=== PATIENT | male | born 2000 | race Caucasian/White ===

== ENCOUNTER 2020-04-07 14:00 | Outpatient (RCR) | payer OTHER, SELFPAY ==
--- NOTE | 2020-04-07 14:37 | HO.PHPPROGNO ---
Subjective Subjective Date of Service: 04/07/20 Reason For Visit: med follow up Interim History: Pt presents for follow up. Bright affect. Happy to share that he has decided to stop smoking marijuana for a month to see if that helps with his motivation. He reports he has not smoked for one day. he asked about increasing lorazepam dose as he feels it's too weak . When asked how/when he is taking this medication, he reports he takes it upon waking at 8am and then he goes back to sleep until at least 11am. He reports he likes that it helps him sleep longer. Discussed rationale for medication and that taking in AM to just go to sleep is likely not the best use of this medication. 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 Pt declined to alaborate any further and requested we talk about something different Ended visit by asking what would happen if he stopped Olanzapine, and asking if it was okay that he try ayahu[place]a in the future. Advised against at this time. Medication Compliance: Yes Side effects from medications: No Review of Systems Cardiovascular: Denies dyspnea Respiratory: Denies dyspnea Gastrointestinal: Reports no additional gastrointestinal complaints Psychiatric: Reports anxiety, Denies depression and Reports paranoia Mental Status Exam Mental Status Exam Patient Appearance: Appropriate Level of Consciousness: Awake and Alert Patient Behavior: Talkative Mood Description: Happy and Apprehensive Affect Description: Happy and Anxious Ability to Follow Directions: Good Speech Pattern: Clear Thought Process: Distracted and Rumination Thought Content: positive for [place], positive for Circumstantial and positive for Perseveration Judgement: Fair Assessment & Plan Assessment & Plan (1) Schizophrenia: Status: Acute Code(s): F20.9 - Schizophrenia, unspecified Assessment and Plan: Adding Buspirone TID to address reported anxiety sx plan to transfer to new provider at the end of April refills will be submitted as needed until then Greater than 50% of the session was spent on counseling and/or coordination of care Discharge Plan Discharge Attending provider: Crystal Gupta Medications: New buspirone 7.5 mg tablet 7.5 mg PO TID Qty: 90 RF: 1 No Action lorazepam 0.5 mg tablet 0.5 mg PO BID PRN (Reason: anxiety) Qty: 30 RF: 1 olanzapine 15 mg tablet 15 mg PO BEDTIME Qty: 30 RF: 1
== END 2020-06-12 23:55 | disposition home or self-care (01) ==
LOC: HO.PAOS 14:00
PROVIDERS: Visit Provider Nurse Practitioner Psychiatric/Mental Health
DX: F20.9 Schizophrenia, unspecified (principal); Z79.899 Other long term (current) drug therapy